=== PATIENT | female | born 1945 | race Hispanic/Latino ===

== ENCOUNTER 2017-01-05 12:55 | Outpatient (CLI) | payer MEDICARE, OTHER ==
[2017-01-05 13:35] LABS: Hematocrit 34.3 % (30.3-42.9)
[2017-01-05 14:04] LABS: Albumin 3.8 g/dL (3.9-5); BUN/Creatinine Ratio 22.72; Calcium 9.1 mg/dL (8.4-10.2); Chloride 109.9 mmol/L (98-107); Phosphorous 3.9 mg/dL (2.5-4.5); Potassium 4.8 mmol/L (3.6-5.0)
== END 2017-01-05 12:56 | disposition home or self-care (01) ==
LOC: LAB 12:55
PROVIDERS: ATTEND Internal Medicine Nephrology
DX: I12.9 Hypertensive chronic kidney disease with stage 1 through stage 4 chronic kidney disease, or unspecified chronic kidney disease (principal); N18.3 Chronic kidney disease, stage 3 (moderate); E11.22 Type 2 diabetes mellitus with diabetic chronic kidney disease; E78.5 Hyperlipidemia, unspecified; E03.9 Hypothyroidism, unspecified; M10.9 Gout, unspecified; E53.8 Deficiency of other specified B group vitamins; E55.9 Vitamin D deficiency, unspecified; N25.81 Secondary hyperparathyroidism of renal origin
CPT/HCPCS: 36415; 80048; 80061; 82040; 82570; 83036; 84100; 84156; 84550; 85014; 85018

== ENCOUNTER 2019-04-28 11:22 | Emergency (ER) | payer MEDICARE, OTHER ==
--- NOTE | 2019-04-28 11:35 | Event Note ---
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 Further treatment and workup at subsequent clinical providers discretion. Patient/guardian urged not to elope from the ED as their condition may be serious if not clinically assessed and ma naged. Initial orders include: labs, UA, EKG
--- NOTE | 2019-04-28 11:59 | Emergency Department Report ---
ED General Adult HPI - General Chief complaint: High BP Stated complaint: DR CAMARGO ([facility]) Time Seen by Provider: 04/28/19 11:35 Source: patient Mode of arrival: Wheelchair Limitations: No Limitations - History of Present Illness Initial comments: Patient is a 74-year-old female that presents emergency room with complaints of elevated blood pressure. Patient was sent here by her kst operator for management of her blood pressure. Patient states that the neurologist gave her 0.1 mg clonidine. Patient states she had a headache prior to receiving clonidine but the headache has resolved. Patient denies blurry vision. Patient denies chest pain shortness of breath. Patient denies any physical complaints. Patient states she has CK D4 but has never required dialysis. Patient states she has diabetes but that is controlled. Patient states she is compliant with all of her medications except for she was not taking one of her blood pressure m edications as directed. -: Sudden - Related Data Home Medications Medication Instructions Recorded Confirmed Last Taken Allopurinol [Zyloprim] 100 mg PO QDAY 05/18/15 05/24/15 05/23/15 Aspirin EC [Aspirin Enteric Coated 81 mg PO QDAY 05/18/15 05/18/15 05/17/15 TAB] Carvedilol [Coreg] 12.5 mg PO BID 05/18/15 05/24/15 05/23/15 Clopidogrel [Plavix] 75 mg PO QDAY 05/18/15 05/18/15 05/17/15 Cyanocobalamin (Vitamin B-12) 1 applicatio IM Q3M 05/18/15 05/18/15 Unknown [Vitamin B-12] Furosemide [Lasix TAB] 40 mg PO QDAY 05/18/15 05/24/15 05/23/15 Levothyroxine [Synthroid] 100 mcg PO QAM 05/18/15 05/24/15 05/23/15 Linagliptin [Tradjenta] 5 mg PO QDAY 05/18/15 05/24/15 05/23/15 Paricalcitol [Zemplar] 2 mcg PO 3XW 05/18/15 05/24/15 05/23/15 Simvastatin [Zocor TAB] 40 mg PO DAILY 05/18/15 05/24/15 05/23/15 glipiZIDE [Glucotrol] 5 mg PO QDAY 05/18/15 05/24/15 05/23/15 hydrALAZINE [Apresoline TAB] 25 mg PO Q8HR 05/18/15 05/24/15 05/23/15 Allergies Allergy/AdvReac Type Severity Reaction Status Date / Time Penicillins Allergy Anaphylaxis Verified 05/24/15 08:59 Sulfa (Sulfonamide Allergy Hives Verified 05/24/15 08:59 Antibiotics) ED Review of Systems ROS: Stated complaint: DR CAMARGO ([facility]) Other details as noted in HPI Constitutional: denies: chills, fever Eyes: denies: eye pain, eye discharge, vision change ENT: denies: ear pain, throat pain Respiratory: denies: cough, shortness of breath, wheezing Cardiovascular: denies: chest pain, palpitations Endocrine: no symptoms reported Gastrointestinal: denies: abdominal pain, nausea, diarrhea Genitourinary: denies: urgency, dysuria, discharge Musculoskeletal: denies: back pain, joint swelling, arthralgia Skin: denies: rash, lesions Neurological: denies: headache, weakness, paresthesias Psychiatric: denies: anxiety, depression Hematological/Lymphatic: denies: easy bleeding, easy bruising ED Past Medical Hx - Past Medical History Previous Medical History?: Yes Hx Hypertension: Yes Hx Renal Disease: Yes (STAGE IV KIDNEY DISEASE) Hx Seizures: No Hx Asthma: No Hx COPD: No - Surgical History Past Surgical History?: Yes Hx Coronary Stent: Yes Hx Open Heart Surgery: Yes Additional Surgical History: fistula placement - Social History Smoking Status: Former Smoker Substance Use Type: Alcohol - Medications Home Medications: Home Medications Medication Instructions Recorded Confirmed Last Taken Type Allopurinol [Zyloprim] 100 mg PO QDAY 05/18/15 05/24/15 05/23/15 History Aspirin EC [Aspirin Enteric Coated 81 mg PO QDAY 05/18/15 05/18/15 05/17/15 History TAB] Carvedilol [Coreg] 12.5 mg PO BID 05/18/15 05/24/15 05/23/15 History Clopidogrel [Plavix] 75 mg PO QDAY 05/18/15 05/18/15 05/17/15 History Cyanocobalamin (Vitamin B-12) 1 applicatio IM Q3M 05/18/15 05/18/15 Unknown History [Vitamin B-12] Furosemide [Lasix TAB] 40 mg PO QDAY 05/18/15 05/24/15 05/23/15 History Levothyroxine [Synthroid] 100 mcg PO QAM 05/18/15 05/24/15 05/23/15 History Linagliptin [Tradjenta] 5 mg PO QDAY 05/18/15 05/24/15 05/23/15 History Paricalcitol [Zemplar] 2 mcg PO 3XW 05/18/15 05/24/15 05/23/15 History Simvastatin [Zocor TAB] 40 mg PO DAILY 05/18/15 05/24/15 05/23/15 History glipiZIDE [Glucotrol] 5 mg PO QDAY 05/18/15 05/24/15 05/23/15 History hydrALAZINE [Apresoline TAB] 25 mg PO Q8HR 05/18/15 05/24/15 05/23/15 History ED Physical Exam - General Limitations: No Limitations General appearance: alert, in no apparent distress - Head Head exam: Present: atraumatic, normocephalic - Eye Eye exam: Present: normal appearance - ENT ENT exam: Present: mucous membranes moist - Neck Neck exam: Present: normal inspection - Respiratory Respiratory exam: Present: normal lung sounds bilaterally. Absent: respiratory distress, wheezes, rales - Cardiovascular Cardiovascular Exam: Present: regular rate, normal rhythm. Absent: systolic murmur, diastolic murmur, rubs, gallop - GI/Abdominal GI/Abdominal exam: Present: soft, normal bowel sounds - Extremities Exam Extremities exam: Present: normal inspection - Back Exam Back exam: Present: normal inspection - Neurological Exam Neurological exam: Present: alert, oriented X3 - Psychiatric Psychiatric exam: Present: normal affect, normal mood - Skin Skin exam: Present: warm, dry, intact, normal color. Absent: rash ED Course Vital Signs 04/28/19 04/28/19 04/28/19 11:29 12:12 12:23 Temperature 97.5 F L Pulse Rate 55 L Respiratory 18 16 Rate Blood Pressure 188/57 Blood Pressure [Right] O2 Sat by Pulse 100 100 100 Oximetry 04/28/19 04/28/19 04/28/19 12:24 12:45 13:33 Temperature 97.6 F Pulse Rate 51 L 53 L 45 L Respiratory 14 16 14 Rate Blood Pressure 177/51 Blood Pressure 177/51 167/53 [Right] O2 Sat by Pulse 97 100 Oximetry - Reevaluation(s) Reevaluation #1: Patient's blood pressure improved after second dose of clonidine. Patient still asymptomatic. Patient does not have a headache. Patient denies chest pain. Patient denies shortness of breath. Discussed all results with patient. Patient is stable for discharge. Patient will be discharged home. Patient agrees with plan of care. Discussed all discharge instructions the patient. Patient voices understanding of discharge instructions. 04/28/19 13:07 - Consultations Consultation #1: discussed case with Dr. Royal, pt's nephro. He states pt is not compliant with meds and he wants pt to monitored until bp below 160 and then discharged. 04/28/19 12:24 ED Medical Decision Making - Lab Data Result diagrams: 04/28/19 11:52 04/28/19 11:52 - Medical Decision Making Patient is a 74-year-old female that presents emergency room for management of her high blood pressure. I discussed the case with the patient's personal kst operator and patient has been monitored and oriented to allow her blood pressure to decrease. Patient is stable for discharge. I discussed the patient's medical regimen and diabetic and nephro diet. Patient voiced understanding of instructions. I discussed with the patient her med regimen and how to take her medications. Patient voiced understanding of her med regimen. Patient advised to monitor her blood pressure. - Differential Diagnosis high blood pressure. Noncompliance. Critical care attestation.: If time is entered above; I have spent that time in minutes in the direct care of this critically ill patient, excluding procedure time. ED Disposition Clinical Impression: Hypertensive urgency, Noncompliance, Unspecified essential hypertension, CKD (chronic kidney disease) stage 4, GFR 15-29 ml/min Disposition: -01 TO HOME OR SELFCARE Is pt being admited?: No Does the pt Need Aspirin: No Condition: Stable Instructions: Heart Healthy Diet (ED), How to Take a Blood Pressure (ED), DASH Eating Plan (ED), Low Sodium Diet (ED), Hypertension (ED) Additional Instructions: Patient to follow-up with primary care in 2-3 days. Patient to follow-up with kst operator in 2-3 days. Patient to return to ER if condition worsens. Patient to rest. Patient to increase water. Patient to take meds as directed. Patient to monitor blood pressure and keep a blood pressure log. Patient to take meds exactly as her kst operator and primary care have directed her. Patient to eat a heart healthy, diabetic and nephro diet.. Referrals: DELMER BANDA MD [Primary Care Provider] - 2-3 Days Time of Disposition: 13:11
[2019-04-28 12:05] LABS: Basophils # (Auto) 0.1 K/mm3 (0.0-0.1); Eosinophils # (Auto) 0.2 K/mm3 (0.0-0.4); Eosinophils % (Auto) 3.3 % (0.0-4.3); Hemoglobin 11.2 gm/dl (10.1-14.3); Lymphocytes # (Auto) 1.7 K/mm3 (1.2-5.4); Lymphocytes % (Auto) 27.8 % (13.4-35.0); Mean Corpuscular HGB Conc 33 % (30-34); Mean Corpuscular Volume 100 fl (79-97); Monocytes # (Auto) 0.4 K/mm3 (0.0-0.8); Monocytes % (Auto) 7.2 % (0.0-7.3); Platelet Count 210 K/mm3 (140-440); Red Blood Count 3.41 M/mm3 (3.65-5.03); Red Cell Distribution Width 15.2 % (13.2-15.2)
[2019-04-28 12:28] LABS: Albumin 3.7 g/dL (3.9-5)
[2019-04-28] MEDS ORDERED: CATAPRES PO ONE (12:28)
[2019-04-28 13:34] VITALS: BP 167/53
== END 2019-04-28 14:29 | disposition home or self-care (01) ==
LOC: ED 11:22
DX: I16.0 Hypertensive urgency (principal); I12.9 Hypertensive chronic kidney disease with stage 1 through stage 4 chronic kidney disease, or unspecified chronic kidney disease; N18.4 Chronic kidney disease, stage 4 (severe); Z91.14 Patient's other noncompliance with medication regimen; Z95.5 Presence of coronary angioplasty implant and graft; Z87.891 Personal history of nicotine dependence; Z79.899 Other long term (current) drug therapy; Z98.890 Other specified postprocedural states; Z88.0 Allergy status to penicillin; Z88.2 Allergy status to sulfonamides
CPT/HCPCS: 36415; 80053; 83735; 84100; 85025

== ENCOUNTER 2019-07-26 13:24 | Outpatient (CLI) | payer MEDICARE, OTHER ==
[2019-07-26 14:22] LABS: Hepatitis C Virus Antibody Non-Reactive (NonReactive)
[2019-07-26 14:26] LABS: Hepatitis B Surface Antigen Non-Reactive (Negative)
--- NOTE | 2019-07-26 14:34 | XRay Report ---
CHEST 2 VIEWS INDICATION: END STAGE RENAL DISEASE. COMPARISON: None FINDINGS: Support devices: None. Heart: Previous CABG changes are noted. Heart size is within normal limits. Lungs/pleura: No acute air space or interstitial disease. There are mild chronic interstitial change s throughout both lungs. No pleural effusion or pneumothorax. Additional findings: Mild thoracic spondylosis. IMPRESSION: No acute findings. Signer Name: Stephen Alves Jr, MD Signed: 07/26/2019 2:30 PM Workstation Name: [id number]
== END 2019-07-26 13:25 | disposition home or self-care (01) ==
LOC: XRAY 13:24
PROVIDERS: ATTEND Internal Medicine Nephrology
DX: I12.0 Hypertensive chronic kidney disease with stage 5 chronic kidney disease or end stage renal disease (principal); N18.6 End stage renal disease; Z87.891 Personal history of nicotine dependence; I25.10 Atherosclerotic heart disease of native coronary artery without angina pectoris; Z99.2 Dependence on renal dialysis
CPT/HCPCS: 36415; 71046; 80074